=== PATIENT | female | born 1985 | race Caucasian/White ===

== ENCOUNTER → 2020-12-14 | Outpatient (CLI) | payer OTHER, SELFPAY ==
[2015-02-22 10:34] VITALS: BMI 18.5
--- NOTE | 2020-12-13 15:00 | FLU_PTH ---
PATIENT: FELICE ALVARADO LOC: [facility] U#:[id number] AGE/SX: 35/F ROOM: RE12/14/[address]: Dr. Vidya Renteria MD : [id number] BED: DIS: 12/14/2020 SPEC #: [id number] RECD: 12/13/20 17:01 STATUS: SAUD RERl #: [id number] BANDAR: 12/13/20 15:[address]: Viday Renteria DEPT: CYTOLOGY RECD BY: Tamra Dela Cruz ENTERED: 12/14/20 09:59 SP TYPE: Fluid OTHR DR: Dr. Juan Peralta MD Tissues: A - Thyroid gland, NOS B - Thyroid gland, NOS Procedures: Special Stain Group II Surgery Specimen Level IV Cytospin Fluid HEADER OPERATION: Ultrasound-guided fine needle aspiration left thyroid PRE-OP DIAGNOSIS: Thyroid nodules TISSUE SUBMITTED: A - FNA, thyroid fluid for cytology, B - FNA, thyroid slides x8 DIAGNOSIS CYTOLOGY A. Left thyroid nodule fluid for cytology, ultrasound-guided FNA (cytospin and cell block): Benign follicular cells noted. B. Left thyroid nodule, ultrasound-guided FNA (smears): Consistent with benign follicular/colloid nodule. Adequate for evaluation. See comment. NANCY:snow 12/15/2020 COMMENT Correlation with clinical, radiologic findings and appropriate follow up are necessary. Please make reference to previous specimen ([id number]) fine needle aspiration, left thyroid nodule with diagnosis of consistent with colloid nodule. CYTOLOGY STUDY Slides are reviewed. CYTOLOGY GROSS A - Received is 30 ml of light red fluid labeled with the patient's name and and designated per the requisition as thyroid. Submitted for cytology preparation including cell block. B - Received are eight smears labeled with the patient's name and designated per the requisition as thyroid. Submitted for staining. / snow 12/14/2020 TC:5 CPT: 49660, 10591, 38392
== END | disposition home or self-care (01) ==
LOC: LABSPEC 08:28
PROVIDERS: PCP Family Medicine; Referring Provider Surgery; Visit Provider Surgery
DX: E04.1 Nontoxic single thyroid nodule (principal)
CPT/HCPCS: 88108; 88305; 88313

== ENCOUNTER → 2021-08-16 | Outpatient (CLI) | payer OTHER, SELFPAY | END | disposition home or self-care (01) | LOC: LABSPEC 12:00 | PROVIDERS: PCP Family Medicine; Referring Provider Physician Assistant Surgical; Visit Provider Physician Assistant Surgical | DX: U07.1 COVID-19 (principal) | CPT/HCPCS: 87635; U0005; U0003 ==